=== PATIENT | female | born 1990 | race American Indian/Alaskan Native ===

== ENCOUNTER 2017-09-29 14:09 | Emergency (ER) | payer SELFPAY ==
[2017-09-29 15:00] VITALS: BP 143/84
[2017-09-29 15:19] LABS: Basophils # (Auto) 0.1 K/mm3 (0.0-0.1); Eosinophils # (Auto) 0.3 K/mm3 (0.0-0.4); Eosinophils % (Auto) 4.3 % (0.0-4.3); Hematocrit 40.6 % (30.3-42.9); Hemoglobin 13.5 gm/dl (10.1-14.3); Lymphocytes # (Auto) 2.6 K/mm3 (1.2-5.4); Lymphocytes % (Auto) 38.8 % (13.4-35.0); Mean Corpuscular HGB Conc 33 % (30-34); Mean Corpuscular Hemoglobin 28 pg (28-32); Mean Corpuscular Volume 82 fl (79-97); Monocytes # (Auto) 0.3 K/mm3 (0.0-0.8); Monocytes % (Auto) 5.3 % (0.0-7.3); Platelet Count 309 K/mm3 (140-440); Red Blood Count 4.92 M/mm3 (3.65-5.03); Red Cell Distribution Width 14.4 % (13.2-15.2)
[2017-09-29 15:34] LABS: Alanine Aminotransferase 11 units/L (7-56); Albumin 3.9 g/dL (3.9-5); BUN/Creatinine Ratio 14; Blood Urea Nitrogen 10 mg/dL (7-17); Calcium 8.7 mg/dL (8.4-10.2); Hemolysis Index 2
[2017-09-29 15:50] LABS: Bacteria,Urine 1+ /HPF (Negative); Bilirubin,Urine NEG (Negative); Blood,Urine NEG (Negative); Color,Urine Yellow (Yellow); Protein,Urine <15 mg/dL mg/dL (Negative); Urobilinogen,Urine < 2.0 mg/dL (<2.0)
--- NOTE | 2017-09-29 16:14 | Emergency Department Report ---
Blank Doc - Documentation Documentation: 27-year-old [place] female who states for the last days she's had some lower abdominal pain. Patient states she believes she is because she took a test and thought she saw a small faint second line. Patient denies fevers chills nausea vomiting diarrhea or cough congestion dysuria hematuria vaginal discharge or vaginal bleeding.
--- NOTE | 2017-09-29 17:37 | Emergency Department Report ---
ED Abdominal Pain HPI - General Chief Complaint: Abdominal Pain Stated Complaint: ABDOMINAL PAIN Time Seen by Provider: 09/29/17 15:47 Source: patient, family Mode of arrival: Ambulatory Limitations: No Limitations - History of Present Illness Initial Comments: 27-year-old Pakistani female who states for the last days she's had some lower abdominal pain. Patient states she believes she is because she took a test and thought she saw a small faint second line. Patient denies fevers ,chills, nausea ,vomiting ,diarrhea or cough congestion dysuria hematuria vaginal discharge or vaginal bleeding. Patient reports that pain is sharp and pain is 7 out of 10. Pain comes and goes. Denies any back pain. Denies any urinary burning, frequency or urgency. No medication taken. MD Complaint: abdominal pain, other (possible ) Onset/Timin -: days(s) Location: suprapubic Radiation: none Migration to: no migration Severity: severe Severity scale (0 -10): 7 Quality: sharp Consistency: intermittent Improves With: nothing Worsens With: nothing Context: other (possible ) Associated Symptoms: denies: nausea, vomiting, diarrhea, fever, chills, constipation, dysuria, hematemesis, hematochezia, melena, hematuria, anorexia, syncope Treatments Prior to Arrival: other (none) - Related Data LMP Date: 06/26/17 Previous Rx's Medication Instructions Recorded Last Taken Type Naproxen [Naprosyn TAB] 500 mg PO Q8H PRN #12 tablet 09/29/17 Unknown Rx Allergies Allergy/AdvReac Type Severity Reaction Status Date / Time No Known Allergies Allergy Unverified 09/29/17 15:00 ED Review of Systems ROS: Stated complaint: ABDOMINAL PAIN Other details as noted in HPI Comment: All other systems reviewed and negative Constitutional: denies: chills, fever ENT: denies: throat pain Respiratory: denies: cough, shortness of breath, SOB with exertion, SOB at rest , wheezing Cardiovascular: denies: chest pain, palpitations, edema, syncope Gastrointestinal: denies: abdominal pain, nausea, vomiting, diarrhea, constipation, hematemesis, melena, hematochezia Genitourinary: abnormal menses. denies: urgency, dysuria, frequency, hematuria , discharge Musculoskeletal: denies: back pain, joint swelling, arthralgia Skin: denies: rash, lesions Neurological: denies: headache ED Past Medical Hx - Past Medical History Previous Medical History?: No - Surgical History Past Surgical History?: No - Family History Family history: no significant - Social History Smoking Status: Current Every Day Smoker Substance Use Type: None Other Social History: Patient is single - Medications Home Medications: Home Medications Medication Instructions Recorded Confirmed Last Taken Type Naproxen [Naprosyn TAB] 500 mg PO Q8H PRN #12 tablet 09/29/17 Unknown Rx ED Physical Exam - General Limitations: No Limitations General appearance: alert, in no apparent distress - Head Head exam: Present: atraumatic, normocephalic - Eye Eye exam: Present: normal appearance - ENT ENT exam: Present: normal exam, normal orophraynx, mucous membranes moist - Neck Neck exam: Present: normal inspection, full ROM. Absent: tenderness, lymphadenopathy - Respiratory Respiratory exam: Present: normal lung sounds bilaterally. Absent: respiratory distress, chest wall tenderness, accessory muscle use - Cardiovascular Cardiovascular Exam: Present: regular rate, normal rhythm, normal heart sounds. Absent: systolic murmur, diastolic murmur - GI/Abdominal GI/Abdominal exam: Present: soft, normal bowel sounds. Absent: distended, tenderness, guarding, rebound, rigid, organomegaly, mass, bruit, pulsatile mass , hernia - Extremities Exam Extremities exam: Present: normal inspection, full ROM, normal capillary refill , other (no clubbing, cyanosis or edema. +2 pulses on extremities and no neurovascular compromise). Absent: tenderness, pedal edema, calf tenderness - Back Exam Back exam: Present: normal inspection, full ROM, other (ambulates without any difficulties). Absent: tenderness, CVA tenderness (R), CVA tenderness (L), muscle spasm, paraspinal tenderness, vertebral tenderness, rash noted - Neurological Exam Neurological exam: Present: alert, oriented X3, normal gait - Psychiatric Psychiatric exam: Present: normal affect, normal mood - Skin Skin exam: Present: warm, dry, intact, normal color. Absent: rash ED Course Vital Signs 09/29/17 14:57 Temperature 98.4 F Pulse Rate 74 Respiratory 16 Rate Blood Pressure 143/84 O2 Sat by Pulse 100 Oximetry - Reevaluation(s) Reevaluation #1: 09/29/17 19:00 Patient stable throughout ED stay. Abdominal exam remained unchanged. ED Medical Decision Making - Lab Data Result diagrams: 09/29/17 15:06 09/29/17 15:06 Lab Results 09/29/17 09/29/17 09/29/17 Range/Units 15:06 15:06 15:06 WBC 6.6 (4.5-11.0) K/mm3 RBC 4.92 (3.65-5.03) M/mm3 Hgb 13.5 (10.1-14.3) gm/dl Hct 40.6 (30.3-42.9) % MCV 82 (79-97) fl MCH 28 (28-32) pg MCHC 33 (30-34) % RDW 14.4 (13.2-15.2) % Plt Count 309 (140-440) K/mm3 Lymph % (Auto) 38.8 H (13.4-35.0) % [place] % (Auto) 5.3 (0.0-7.3) % Eos % (Auto) 4.3 (0.0-4.3) % Baso % (Auto) 1.0 (0.0-1.8) % Lymph # 2.6 (1.2-5.4) K/mm3 [place] # 0.3 (0.0-0.8) K/mm3 Eos # 0.3 (0.0-0.4) K/mm3 Baso # 0.1 (0.0-0.1) K/mm3 Seg Neutrophils % 50.6 (40.0-70.0) % Seg Neutrophils # 3.4 (1.8-7.7) K/mm3 Sodium 139 (137-145) mmol/L Potassium 3.8 (3.6-5.0) mmol/L Chloride 101.3 (98-107) mmol/L Carbon Dioxide 27 (22-30) mmol/L Anion Gap 15 mmol/L BUN 10 (7-17) mg/dL Creatinine 0.7 (0.7-1.2) mg/dL Estimated GFR > 60 ml/min BUN/Creatinine Ratio 14 % Glucose 117 H (65-100) mg/dL Calcium 8.7 (8.4-10.2) mg/dL Total Bilirubin 0.30 (0.1-1.2) mg/dL AST 23 (5-40) units/L ALT 11 (7-56) units/L Alkaline Phosphatase 91 (35-129) units/L Total Protein 7.2 (6.3-8.2) g/dL Albumin 3.9 (3.9-5) g/dL Albumin/Globulin Ratio 1.2 % HCG, Quant < 2 (0-4) mIU/mL Urine Color (Yellow) Urine Turbidity (Clear) Urine pH (5.0-7.0) Ur Specific [place] (1.003-1.030) Urine Protein (Negative) mg/dL Urine Glucose (UA) (Negative) mg/dL Urine Ketones (Negative) mg/dL Urine Blood (Negative) Urine Nitrite (Negative) Urine Bilirubin (Negative) Urine Urobilinogen (<2.0) mg/dL Ur Leukocyte Esterase (Negative) Urine WBC (Auto) (0.0-6.0) /HPF Urine RBC (Auto) (0.0-6.0) /HPF U Epithel Cells (Auto) (0-13.0) /HPF Urine Bacteria (Auto) (Negative) /HPF 09/29/17 Range/Units Unknown WBC (4.5-11.0) K/mm3 RBC (3.65-5.03) M/mm3 Hgb (10.1-14.3) gm/dl Hct (30.3-42.9) % MCV (79-97) fl MCH (28-32) pg MCHC (30-34) % RDW (13.2-15.2) % Plt Count (140-440) K/mm3 Lymph % (Auto) (13.4-35.0) % [place] % (Auto) (0.0-7.3) % Eos % (Auto) (0.0-4.3) % Baso % (Auto) (0.0-1.8) % Lymph # (1.2-5.4) K/mm3 [place] # (0.0-0.8) K/mm3 Eos # (0.0-0.4) K/mm3 Baso # (0.0-0.1) K/mm3 Seg Neutrophils % (40.0-70.0) % Seg Neutrophils # (1.8-7.7) K/mm3 Sodium (137-145) mmol/L Potassium (3.6-5.0) mmol/L Chloride (98-107) mmol/L Carbon Dioxide (22-30) mmol/L Anion Gap mmol/L BUN (7-17) mg/dL Creatinine (0.7-1.2) mg/dL Estimated GFR ml/min BUN/Creatinine Ratio % Glucose (65-100) mg/dL Calcium (8.4-10.2) mg/dL Total Bilirubin (0.1-1.2) mg/dL AST (5-40) units/L ALT (7-56) units/L Alkaline Phosphatase (35-129) units/L Total Protein (6.3-8.2) g/dL Albumin (3.9-5) g/dL Albumin/Globulin Ratio % HCG, Quant (0-4) mIU/mL Urine Color Yellow (Yellow) Urine Turbidity Clear (Clear) Urine pH 5.0 (5.0-7.0) Ur Specific [place] 1.018 (1.003-1.030) Urine Protein <15 mg/dl (Negative) mg/dL Urine Glucose (UA) Neg (Negative) mg/dL Urine Ketones Neg (Negative) mg/dL Urine Blood Neg (Negative) Urine Nitrite Neg (Negative) Urine Bilirubin Neg (Negative) Urine Urobilinogen < 2.0 (<2.0) mg/dL Ur Leukocyte Esterase Neg (Negative) Urine WBC (Auto) 1.0 (0.0-6.0) /HPF Urine RBC (Auto) 2.0 (0.0-6.0) /HPF U Epithel Cells (Auto) 1.0 (0-13.0) /HPF Urine Bacteria (Auto) 1+ (Negative) /HPF - Radiology Data Radiology results: report reviewed, image reviewed interpreted by me: X-ray of the interview by myself and Dr. Bull and no acute findings. - Medical Decision Making ED course: Here reports that she has abdominal pain to lower quadrant and she's missed her menses and she is pretty sure that she is . She says she developed test and it was faint. test emergency room negative. CBC, chemistry and urinalysis stable. She has asymptomatic 1+ bacteria. She is to tolerate oral fluids in the emergency room. Abdominal exam remained stable in the emergency room. Patient is stable and discharged home with her family member in stable condition Diagnosis: Abdominal pain, abnormal menstrual cycle, asymptomatic activity area Diagnostic/labs: CBC, chemistry and urinalysis done. Patient with 1+ bacteria in her urine otherwise all lab work and normal. test is negative. X- ray abdominal series reviewed by myself and Dr. Bull and no acute findings. Meds in ED: None Discharge meds: Naproxen Referral: She discharged home referral to my SHOE C[facility]TER for abnormal menstruation, L and a gastroenterology for abdominal pain and her primary care physician. And if she doesn't have a primary care she was referred to [facility]. Critical care attestation.: If time is entered above; I have spent that time in minutes in the direct care of this critically ill patient, excluding procedure time. ED Disposition Clinical Impression: Asymptomatic bacteriuria, Abnormal menstrual cycle Abdominal pain Qualifiers: Abdominal location: lower abdomen, unspecified Qualified Code(s): R10.30 - Lower abdominal pain, unspecified Disposition: TO HOME OR SELFCARE Is pt being admited?: No Does the pt Need Aspirin: No Condition: Stable Instructions: Abdominal Pain (ED) Additional Instructions: Please follow up with the SHOE CUTTER regarding an abnormal menstrual cycle. Take naproxen for pain Increase her fluid intake. Prescriptions: Naproxen [Naprosyn TAB] 500 mg PO Q8H PRN #12 tablet PRN Reason: abdominal pain Referrals: PRIMARY CAREMD [Primary Care Provider] - 10/01/17 [facility] [Outside] - 10/01/17 [facility] [Provider Group] - 10/01/17 Forms: Work/School Release Form(ED)
--- NOTE | 2017-09-29 19:42 | XRay Report ---
FINAL REPORT EXAM: XR ABDOMEN 1V AP HISTORY: lower abd pain TECHNIQUE: Single view of the abdomen Comparison: None FINDINGS: There is air throughout the right colon and transverse colon. Paucity of bowel gas otherwise. Small amount of air in the stomach. No suspicious calcifications. Left SI joint mild bony lipping. No organomegaly appreciated. IMPRESSION: Nonspecific bowel gas pattern. Paucity of bowel gas in the bony pelvis. No plain-film evidence of excess stool. Cannot assess for free air on this supine view.
== END 2017-09-29 19:32 | disposition home or self-care (01) ==
LOC: ED 14:09
DX: N94.89 Other specified conditions associated with female genital organs and menstrual cycle (principal); R82.71 Bacteriuria; F17.200 Nicotine dependence, unspecified, uncomplicated
CPT/HCPCS: 36415; 74018; 80053; 81001; 84702; 85025; 99284

== ENCOUNTER 2018-06-24 21:30 | Emergency (ER) | payer OTHER ==
[2018-06-24] MEDS ORDERED: TORADOL IM ONE (23:07)
--- NOTE | 2018-06-24 23:09 | Emergency Department Report ---
ED Female HPI - General Chief complaint: Abdominal Pain Stated complaint: PELVIC PAIN Time Seen by Provider: 06/24/18 22:31 Source: patient Mode of arrival: Ambulatory Limitations: No Limitations - History of Present Illness Initial comments: Patient is a 28-year-old Afro[place] female with history of intrauterine polyps who presents with vaginal bleeding for the past 6 months states bleeding has increased to smoke using 4-6 tampons and pads a day patient is followed by [facility] for problem had a colonoscopy and biopsy to 2 months ago planned for int ervention and polyps removal is pressure. In 2 weeks MD Complaint: vaginal bleeding Onset/Timin -: month(s) Severity: moderate Severity scale (0 -10): 4 Quality: cramping, aching Consistency: constant Improves with: none Worsens with: movement Are you Now?: No Last Menstrual Period: 11/17/17 EDC: 08/24/18 Associated Symptoms: vaginal bleeding - Related Data Sexually active: No Previous Rx's Medication Instructions Recorded Last Taken Type Naproxen [Naprosyn TAB] 500 mg PO Q8H PRN #12 tablet 09/29/17 Unknown Rx Ibuprofen 800 mg PO TID PRN #30 tablet 06/25/18 Unknown Rx Nitrofurantoin Monohyd/M-Cryst 100 mg PO BID 7 Days #14 capsule 06/25/18 Unknown Rx [Macrobid 100 mg Capsule] medroxyPROGESTERone ACETATE 10 mg PO QDAY #10 tablet 06/25/18 Unknown Rx [Provera] Allergies Allergy/AdvReac Type Severity Reaction Status Date / Time No Known Allergies Allergy Verified 06/24/18 23:31 ED Review of Systems ROS: Stated complaint: PELVIC PAIN Other details as noted in HPI Constitutional: denies: chills, fever Eyes: denies: eye pain, eye discharge, vision change ENT: denies: ear pain, throat pain Respiratory: denies: cough, shortness of breath, wheezing Cardiovascular: denies: chest pain, palpitations Endocrine: no symptoms reported Gastrointestinal: denies: abdominal pain, nausea, vomiting, diarrhea Genitourinary: abnormal menses. denies: urgency, dysuria, frequency, hematuria, discharge, dyspareunia Musculoskeletal: denies: back pain, joint swelling, arthralgia Skin: denies: rash, lesions Neurological: denies: headache, weakness, paresthesias Psychiatric: denies: anxiety, depression Hematological/Lymphatic: denies: easy bleeding, easy bruising ED Past Medical Hx - Past Medical History Previous Medical History?: Yes Hx Hypertension: No Hx CVA: No Hx Heart Attack/AMI: No Hx Congestive Heart Failure: No Hx Diabetes: No Hx Deep Vein Thrombosis: No Hx Pulmonary Embolism: No Hx GERD: No Hx Liver Disease: No Hx Renal Disease: No Hx of Cancer: No Hx Sickle Cell Disease: No Hx Arthritis: No Hx Headaches / Migraines: No Hx Seizures: No Hx Kidney Stones: No Hx Psychiatric Treatment: No Hx Asthma: No Hx COPD: No Hx Tuberculosis: No Hx Dementia: No Hx HIV: No Additional medical history: polyps - Surgical History Past Surgical History?: Yes Additional Surgical History: right ACL - Social History Smoking Status: Current Some Day Smoker Substance Use Type: None - Medications Home Medications: Home Medications Medication Instructions Recorded Confirmed Last Taken Type Naproxen [Naprosyn TAB] 500 mg PO Q8H PRN #12 tablet 09/29/17 Unknown Rx Ibuprofen 800 mg PO TID PRN #30 tablet 06/25/18 Unknown Rx Nitrofurantoin Monohyd/M-Cryst 100 mg PO BID 7 Days #14 capsule 06/25/18 Unknown Rx [Macrobid 100 mg Capsule] medroxyPROGESTERone ACETATE 10 mg PO QDAY #10 tablet 06/25/18 Unknown Rx [Provera] ED Physical Exam - General Limitations: No Limitations General appearance: alert, in no apparent distress - Head Head exam: Present: atraumatic, normocephalic - Eye Eye exam: Present: normal appearance, PERRL, EOMI Pupils: Present: normal accommodation - ENT ENT exam: Present: mucous membranes moist - Neck Neck exam: Present: normal inspection, full ROM - Respiratory Respiratory exam: Present: normal lung sounds bilaterally. Absent: respiratory distress, wheezes, rhonchi, chest wall tenderness - Cardiovascular Cardiovascular Exam: Present: regular rate, normal rhythm, normal heart sounds. Absent: systolic murmur, diastolic murmur, rubs, gallop - GI/Abdominal GI/Abdominal exam: Present: soft, normal bowel sounds. Absent: distended, tenderness, guarding, rebound, rigid, bruit, hernia - Rectal Rectal exam: Present: deferred - Extremities Exam Extremities exam: Present: normal inspection, full ROM, normal capillary refill. Absent: tenderness, pedal edema, calf tenderness - Back Exam Back exam: Present: normal inspection, full ROM. Absent: tenderness, CVA tenderness (R), CVA tenderness (L), muscle spasm - Neurological Exam Neurological exam: Present: alert, oriented X3, CN II-XII intact, normal gait - Psychiatric Psychiatric exam: Present: normal affect, normal mood - Skin Skin exam: Present: warm, dry, intact, normal color. Absent: rash ED Course Vital Signs 06/24/18 21:54 Temperature 97.9 F Pulse Rate 70 Respiratory 17 Rate Blood Pressure 140/87 Blood Pressure 140/87 [Right] O2 Sat by Pulse 100 Oximetry ED Medical Decision Making - Lab Data Result diagrams: 06/24/18 22:48 Labs 06/24/18 06/24/18 06/24/18 22:48 22:48 22:50 WBC 9.1 RBC 4.45 Hgb 11.8 Hct 36.8 MCV 83 MCH 27 L MCHC 32 RDW 14.7 Plt Count 354 Lymph % (Auto) 39.1 H [place] % (Auto) 5.2 Eos % (Auto) 3.4 Baso % (Auto) 0.3 Lymph # 3.6 [place] # 0.5 Eos # 0.3 Baso # 0.0 Seg Neutrophils % 52.0 Seg Neutrophils # 4.7 HCG, Quant < 2 Urine Color Yellow Urine Turbidity Cloudy Urine pH 5.0 Ur Specific [place] 1.023 Urine Protein 30 mg/dl Urine Glucose (UA) Neg Urine Ketones Neg Urine Blood Lg Urine Nitrite Neg Urine Bilirubin Neg Urine Urobilinogen < 2.0 Ur Leukocyte Esterase Mod Urine WBC (Auto) 48.0 H Urine RBC (Auto) > 182.0 U Epithel Cells (Auto) 1.0 Urine Mucus 1+ - Radiology Data Radiology results: report reviewed, image reviewed FINDINGS: The lung bases are without infiltrate, pneumothorax or pleural fluid collection. The heart appears to be normal size. The liver, spleen, pancreas, kidneys and adrenal glands are unremarkable on this study without contrast. The gallbladder is absent with surgical clips in the gallbladder fossa. The bowel is normal caliber. There is a small hiatal hernia. The appendix is normal caliber. There is a small amount of free fluid in the deep pelvis. The etiology of this finding is unclear. There is no evidence of pneumoperitoneum. The abdominal aorta is normal caliber. There is no definite evidence of pathologic intra-abdominal adenopathy by CT size criteria on this study without contrast. The urinary bladder is mildly distended and unremarkable in appearance. The bony structures are unremarkable. IMPRESSION: 1. Small amount of free fluid in the deep pelvis of unclear etiology. If further imaging is required, CT abdomen and pelvis with GI and IV contrast may be helpful for further evaluation. 2. Status post cholecystectomy. 3. Hiatal hernia. Transcribed By: ED Dictated By: DOMENICA FERNANDEZ MD Electronically Authenticated By: DOMENICA FERNANDEZ MD Signed Date/Time: 06/24/18 2517 FINAL REPORT EXAM: US PELVIC COMPLETE HISTORY: AUB abd pain TECHNIQUE: Trans abdominal imaging was obtained the pelvis. FINDINGS: The uterus is anteverted measuring 6.6 cm x 3.5 cm x 4.1 cm. The myometrium is homogeneous. The endometrial thickness is 11.4 mm. There is minimal free fluid in cul-de-sac. The right ovary is normal size measuring 2.9 cm x 1.6 cm x 1.7 cm. There are benign follicles in the right ovary. The left ovary measures 3.6 cm x 2.7 cm x 2.4 cm. There are benign follicles in left ovary with a dominant functional cyst measuring 2.2 cm in diameter. The blood flow is normal both ovaries. IMPRESSION: Benign follicles in both ovaries with dominant functional cyst in left ovary measuring 2.2 cm in diameter. No evidence of ovarian torsion. Normal-appearing uterus and endometrium. Minimal free fluid in cul-de-sac. - Medical Decision Making US ovarian cyst, ua: mod leuk, wbc, plan; tx for UTI, provera for bleeding follow up with PROCESS CONTR[facility]LLER in 2-3 days return to emergency if symptoms worsen. pt verbalized agreement and understanding of discharge plan. Critical care attestation.: If time is entered above; I have spent that time in minutes in the direct care of this critically ill patient, excluding procedure time. ED Disposition Clinical Impression: Abnormal uterine bleeding (AUB) Ovarian cyst Qualifiers: Laterality: unspecified laterality Qualified Code(s): N83.209 - Unspecified ovarian cyst, unspecified side Menorrhagia Qualifiers: Menorrahagia type: with irregular cycle Qualified Code(s): N92.1 - Excessive and frequent menstruation with irregular cycle UTI (urinary tract infection) Qualifiers: Urinary tract infection type: acute cystitis Disposition: TO HOME OR SELFCARE Is pt being admited?: No Does the pt Need Aspirin: No Condition: Stable Instructions: Abdominal Pain (ED) Additional Instructions: follow up with your [facility]ER doctor in 2-3 days Prescriptions: Ibuprofen 800 mg PO TID PRN #30 tablet PRN Reason: pain medroxyPROGESTERone ACETATE [Provera] 10 mg PO QDAY #10 tablet Nitrofurantoin Monohyd/M-Cryst [Macrobid 100 mg Capsule] 100 mg PO BID 7 Days #14 capsule Referrals: KRYSTAL RIDER MD [Staff Physician] - 3-5 Days PRIMARY CARE, [Primary Care Provider] - 3-5 Days Forms: Work/School Release Form(ED) Time of Disposition: 00:57
[2018-06-24] MEDS ORDERED: TORADOL ONE (23:10)
[2018-06-24 23:16] LABS: Bilirubin,Urine NEG (Negative); Blood,Urine LG (Negative); Color,Urine Yellow (Yellow); Mucus,Urine 1+ /HPF; Urobilinogen,Urine < 2.0 mg/dL (<2.0)
[2018-06-24 23:17] LABS: RBC,Urine > 182.0 /HPF (0.0-6.0)
[2018-06-24 23:22] LABS: Basophils % (Auto) 0.3 % (0.0-1.8); Eosinophils # (Auto) 0.3 K/mm3 (0.0-0.4); Eosinophils % (Auto) 3.4 % (0.0-4.3); Hematocrit 36.8 % (30.3-42.9); Hemoglobin 11.8 gm/dl (10.1-14.3); Lymphocytes # (Auto) 3.6 K/mm3 (1.2-5.4); Lymphocytes % (Auto) 39.1 % (13.4-35.0); Mean Corpuscular HGB Conc 32 % (30-34); Mean Corpuscular Volume 83 fl (79-97); Monocytes # (Auto) 0.5 K/mm3 (0.0-0.8); Monocytes % (Auto) 5.2 % (0.0-7.3); Platelet Count 354 K/mm3 (140-440); Red Blood Count 4.45 M/mm3 (3.65-5.03); Red Cell Distribution Width 14.7 % (13.2-15.2)
--- NOTE | 2018-06-25 00:41 | Ultrasound Report ---
FINAL REPORT EXAM: US TRANSVAGINAL HISTORY: pelvic pain vag bleeding TECHNIQUE: Transvaginal imaging was obtained the pelvis including Doppler interrogation of the adnex a. FINDINGS: The uterus is anteverted measuring 6.6 cm x 3.5 cm x 4.1 cm. The endometrial thickness is 11.4 mm. Th e myometrium is homogeneous. There minimal free fluid the pelvis. The right ovary is normal size contour blood flow and echotexture measuring 2.9 cm x 1.6 cm x 1.7 cm. The benign follicles in the right ovary. The left ovary measures 3.6 cm x 2.7 cm x 2.4 cm. There are benign follicles in left ovary along with a dominant functional cyst measuring 2.2 cm in diameter. The blood flow is normal to left ovary. IMPRESSION: Benign follicles in both ovary with a 2.2 cm functional cyst in left ovary. No evidence of ovarian to rsion. Normal-appearing uterus and endometrium. Minimal free fluid in the cul-de-sac.
--- NOTE | 2018-06-25 00:42 | Ultrasound Report ---
FINAL REPORT EXAM: US PELVIC COMPLETE HISTORY: AUB abd pain TECHNIQUE: Trans abdominal imaging was obtained the pelvis. FINDINGS: The uterus is anteverted measuring 6.6 cm x 3.5 cm x 4.1 cm. The myometrium is homogeneous. The endom etrial thickness is 11.4 mm. There is minimal free fluid in cul-de-sac. The right ovary is normal size measuring 2.9 cm x 1.6 cm x 1.7 cm. There are benign follicles in the right ovary. The left ovary measures 3.6 cm x 2.7 cm x 2.4 cm. There are benign follicles in left ovary with a dom inant functional cyst measuring 2.2 cm in diameter. The blood flow is normal both ovaries. IMPRESSION: Benign follicles in both ovaries with dominant functional cyst in left ovary measuring 2.2 cm in diam eter. No evidence of ovarian torsion. Normal-appearing uterus and endometrium. Minimal free fluid in cul-de-sac.
[2018-06-26 12:57] VITALS: BP 140/87
== END 2018-06-25 01:48 | disposition home or self-care (01) ==
LOC: ED 21:30
DX: N83.209 Unspecified ovarian cyst, unspecified side (principal); N92.1 Excessive and frequent menstruation with irregular cycle; N30.00 Acute cystitis without hematuria; F17.200 Nicotine dependence, unspecified, uncomplicated
CPT/HCPCS: 36415; 76830; 76856; 81001; 84702; 85025; 96372; 99284; J1885